=== PATIENT | female | born 1990 | race Caucasian/White ===

== ENCOUNTER → 2022-03-31 | Outpatient (CLI) | payer OTHER ==
[~2022-03-31] MED LIST: HYDR1TAB PO
--- NOTE | 2022-03-31 11:54 | Diagnostic Imaging Report ---
INDICATION: survey. TECHNIQUE: Multiple Real-time grayscale images were obtained over the gravid uterus. COMPARISON: None. FINDINGS: There is a single live fetus in a cephalic presentation. The heart rate was recorded at 149 BPM. The placenta is anterior. No previa is detected. The amniotic fluid volume is normal. The cervical length is 4.3 cm. The kidneys, bladder, and stomach are unremarkable. The brain is unremarkable. There is a four-chamber heart. There is a three-vessel cord with normal insertion. The spine is unremarkable. Biometrical measurements are as follows: Biparietal 4.92 cm, age 21 weeks 0 days. Head circumference 18.77 cm, age 21 weeks 1 days. Abdominal circumference 15.44 cm, age 20 weeks 5 days. Femur length 3.23 cm, age 20 weeks 1 days. Sonographic estimate age: 20 weeks 6 days. Sonographic estimated date of delivery: 08/12/2022. Estimated Weight: 355 gm (+/- 52 gm). LMP percentile: 71%. heart rate: 149 beats per minute. number: 1 of 1. IMPRESSION: Single live IUP of approximately 21 weeks gestational age. The estimated date of confinement sonographically is 08/12/2022. No complicating features are identified. Dictated by: Dictated on workstation # [id number]
== END ==
LOC: RAD 09:43
PROVIDERS: ATTEND Obstetrics & Gynecology
DX: Z36.9 Encounter for antenatal screening, unspecified (principal); Z3A.21 21 weeks gestation of pregnancy
CPT/HCPCS: 76805

== ENCOUNTER → 2022-07-22 | Outpatient (CLI) | payer OTHER | LOC: CARDFS 12:48 | PROVIDERS: ATTEND Family Medicine | DX: R00.0 Tachycardia, unspecified (principal); R06.02 Shortness of breath | CPT/HCPCS: 93306 ==